=== PATIENT | female | born 1995 | race Caucasian/White ===

== ENCOUNTER 2022-08-14 07:46 | Emergency (ER) | payer OTHER, SELFPAY ==
--- NOTE | ~2022-08-14 | CT_ITS ---
EXAMINATION: CT ANGIOGRAM NECK WITH CONTRAST CT ANGIOGRAM BRAIN WITH CONTRAST CLINICAL INFORMATION: Severe headache. Right-sided numbness. Question carotid dissection. COMPARISON: None. TECHNIQUE: Test bolus sequences followed by intravenous administration 100 mL of Omnipaque 350. Helical imaging was performed in the axial plane from the thoracic inlet to the skull vertex. Delayed postcontrast imaging of the head was also performed. The data was processed at the radiologic technologist workstation for generation of MIP sequences. Angled MIPs and volume rendered reformatted images were also generated at an offline 3D workstation. Stenoses are assessed in accordance with NASCET criteria unless otherwise indicated. This CT examination was performed using dose optimization techniques as appropriate, variously including the following: *Automated exposure control *Adjustment of mA and/or kV according to patient size (this includes techniques or standardized protocols for targeted exams where dose is matched to indication/reason for exam; i.e. extremities or head) *Use of iterative reconstruction technique DLP: 2371 mGy-cm FINDINGS: Head CT: There is no intracranial hemorrhage, large acute infarction, or mass lesion. The ventricles are normal in size and configuration without evidence of hydrocephalus. On the postcontrast images, no abnormal enhancement is seen. The dural venous sinuses are normally opacified. The visualized paranasal sinuses and mastoid air cells are clear. Neck CTA: There is a normal aortic arch with no significant stenosis of the great vessel origins. The common and internal carotid arteries are normal in course and caliber. Both vertebral arteries are widely patent throughout their extracranial cervical course. Head CTA: No intracranial aneurysm is seen. The intracranial internal carotid arteries appear normal. The anterior cerebral artery, anterior communicating artery, and middle cerebral arteries appear normal. The intradural vertebral arteries and basilar artery appear normal. The posterior cerebral arteries appear normal. The posterior communicating arteries appear normal. Non-vascular findings: The cervical spine is intact without significant degenerative change. The cervical soft tissues appear normal. The upper lungs are clear. CT/CT angio head neck IMPRESSION: CT HEAD: No intracranial hemorrhage or large acute infarction. CTA NECK: Normal appearance of the major neck arteries. No dissection. CTA HEAD: Normal appearance of the major intracranial arteries. No occlusion.
--- NOTE | ~2022-08-14 | CT_ITS ---
EXAMINATION: CT HEAD WITHOUT CONTRAST CLINICAL INFORMATION: Headache, slurred speech. COMPARISON: None TECHNIQUE: Contiguous axial imaging was performed from the skull base to vertex without intravenous administration of contrast. Coronal and sagittal reformatted images were obtained. This CT examination was performed using dose optimization techniques as appropriate, variously including the following: *Automated exposure control *Adjustment of mA and/or kV according to patient size (this includes techniques or standardized protocols for targeted exams where dose is matched to indication/reason for exam; i.e. extremities or head) *Use of iterative reconstruction technique DLP: 730 mGy-cm FINDINGS: The cortical sulci are normal. The lateral ventricles are symmetrical. The third and fourth ventricles are in their normal midline position. The basilar and prepontine cisterns are unremarkable. There is no acute intra or extracerebral abnormality. There is no mass effect or midline shift. Sections through the bony calvarium are unremarkable. The paranasal sinuses are clear. The bony orbits and orbital contents are unremarkable. CT/CT head/brain wo IV con IMPRESSION: No acute intracranial pathology.
[2022-08-14 07:59] VITALS: BP 136/79; PULSE 120; RESP 24; TEMP 36.7; O2SAT 98; BMI 31.3
--- NOTE | 2022-08-14 07:59 | ED.GENADULT ---
HPI - General Adult General Stated complaint: Headache Time Seen by Provider: 08/14/22 07:57 Source: patient Mode of arrival: ambulatory Limitations: no limitations
--- NOTE | 2022-08-14 08:18 | ED_ITS ---
HPI - Headache General Chief Complaint: Headache Stated Complaint: Headache Time Seen by Provider: 08/14/22 07:57 Source: patient and family Mode of arrival: ambulatory Limitations: no limitations History of Present Illness HPI Narrative: pt presented with HAMILTON X 10 h frontal, denies fever/vomiting,she has hx of anxiety and migraine in the past MD elicited complaint: headache Onset (ago): hour(s) (10) Onset description: gradually Location: frontal Severity: moderate Quality & Timing: aching Exacerbating factors: none Relieving factors: nothing Related Data Allergies Allergy/AdvReac Type Severity Reaction Status Date / Time Penicillins Allergy Fever Verified 08/14/22 08:06 Review of Systems Review of Systems: Yes all other systems are reviewed and are negative ENT: Reports system reviewed and no additional complaints, except as documented Cardiovascular: Cardiovascular: Reports no additional cardiovascular complaints Genitourinary: Genitourinary: Reports no additional female genitourinary complaints Neurologic: Reports system reviewed and no additional complaints, except as documented PMFSH Past Medical History PMFSH Narrative: Anxiety/depression/migraine Social History Social History Smoked in Last 30 Days: No Use of substances other than those prescribed or required for medical reasons: No Advance Directives: No Advance Directives Information Provided: No Physical Exam Vital Signs: Vital Signs: Last Vital Signs Temp 98.7 F 08/14/22 13:51 Pulse 109 H 08/14/22 13:51 Resp 14 08/14/22 13:51 BP 107/61 08/14/22 13:51 Pulse Ox 97 08/14/22 13:51 O2 Del Method 08/14/22 13:51 BMI result Body Mass Index 31.3 Const: General: alert and other (very anxious appearing) Nutritional Appearance: average body habitus Orientation/consciousness: patient oriented x3 Limitations: no limitations HEENT: Head: Yes normal to inspection Ears: hearing grossly normal bilaterally General nose exam: Normal external nose present Face and sinus: Yes normal facial exam Mouth: Normal oral and palatal mucosa present Throat: Yes posterior oropharynx normal Neck: Neck: Yes normal visual inspection, Yes full ROM and Yes no meningeal signs Chest: Chest palpation & inspection: normal inspection of the chest Resp: Effort & Inspection: normal respiratory effort Auscultation: clear to auscultation bilaterally Cardio: Jugular venous distension: no JVD Rate: regular rate Rhythm: regular rhythm GI: Inspection: Yes normal to inspection Palpation (GI): Soft to palpation, not firm and nontender Skin: General skin exam: no rashes or lesions noted, elasticity normal and turgor normal Lesions: no lesions Rashes: no rashes Trauma: no lacerations or abrasions Neuro: General: patient oriented x3 and no meningeal signs Cranial nerves: Yes CN's II-XII intact bilaterally Gait exam (Neuro): Normal gait present Motor exam (neuro): 5/5 motor strength present throughout and Pronator motor function not present Course Reevaluation(s) Reevaluation #1: better sleeping in NAD HAMILTON down t o 12/05 ,head ct minus NAD ;will do CTA as well Time: 10:31 Reevaluation #2: We are waiting for CTA she is feeling better on exam supple neck afebrile Reevaluation #3: Headache free ,eating and drinking . Discussed L.P because leukocytosis pt and mother refused LP Medications Administered Discontinued Medications Generic Name Dose Route Start Last Admin Trade Name José Antonio PRN Reason Stop Dose Admin Diphenhydramine HCl 12.5 mg 08/14/22 08:16 08/14/22 08:42 Diphenhydramine Hcl 50 Mg/Ml Vial IVPUSH 08/14/22 08:17 12.5 mg ONCE ONE Administration Sodium Chloride 1,000 mls @ 999 mls/hr 08/14/22 08:15 08/14/22 09:38 Ns IVCONT 08/14/22 09:15 Infused .Q1H1M JEANNINE Infusion Iohexol 70 ml 08/14/22 12:36 08/14/22 12:37 Iohexol 350 Mg/Ml 100 Ml Infus..Btl IV 08/14/22 12:37 70 ml ONCE ONE Administration Ketorolac Tromethamine 30 mg 08/14/22 10:29 08/14/22 11:16 Ketorolac Tromethamine 30 Mg/Ml Vial IVPUSH 08/14/22 10:30 30 mg ONCE ONE Administration Lorazepam 0.5 mg 08/14/22 08:28 08/14/22 08:42 Lorazepam 2 Mg/Ml Vial IVPUSH 08/14/22 08:29 0.5 mg ONCE ONE Administration Metoclopramide HCl 10 mg 08/14/22 08:16 08/14/22 08:42 Metoclopramide Hcl 10 Mg/2 Ml Vial IVPUSH 08/14/22 08:17 10 mg ONCE ONE Administration Medical Decision Making Medical Decision Making [facility] [place] Narrative: pt presented with HAMILTON,she appear very anxious will get lab/ct/antianxiety and analgesia Differential Diagnosis Differential Diagnoses: The differential diagnosis associated with the presentation includes aneurism,subaracnoid bleed/brain tumor/meningitis Admission/Observation Consideration of admission/observation: Escalation of care including admission/observation considered Lab Data [facility] [place] Lab Attestation statement: I reviewed the patient's lab results. 08/14/22 08:35 08/14/22 08:57 Labs: Lab Results 08/14/22 08/14/22 Range/Units 08:35 08:57 WBC 15.8 H (4.8-10.8) X10*3/uL RBC 5.13 (4.20-5.50) X10*6/uL Hgb 14.7 (12.0-16.0) g/dl Hct 42.2 (37.0-47.0) % MCV 82.3 (80.0-98.0) fL MCH 28.7 (27.0-33.0) pg MCHC 34.8 (31.0-35.0) g/dl RDW 12.2 (11.0-16.0) % Plt Count 566 H (160-400) X10*3/uL MPV 9.2 L (9.4-12.3) fL Immature Gran % (Auto) 0.3 (0.0-0.4) % Neut % (Auto) 73.4 H (45-73) % Lymph % (Auto) 20.4 (20-40) % Gilchrist % (Auto) 5.4 (2-11) % Eos % (Auto) 0.1 (0-4) % Baso % (Auto) 0.4 (0-2) % Lymph # (Auto) 3.2 (1.2-4.9) X10*3/uL Gilchrist # (Auto) 0.9 (0.1-1.2) X10*3/uL Eos # (Auto) 0.0 (0.0-0.4) X10*3/uL Baso # (Auto) 0.1 (0.0-0.2) X10*3/uL Abs Immat Gran (auto) 0.04 H (0.00-0.03) X10*3/uL Absolute Neuts (auto) 11.6 H (2.0-8.3) x10*3/uL Absolute Nucleated RBC 0.000 (0.0-0.012) X10*3/uL Nucleated RBC % (auto) 0.0 (0.0-0.2) /100WBC Sodium 138 (135-145) mmol/L Potassium 3.4 (3.3-5.1) mmol/L Chloride 108 (96-108) mmol/L Carbon Dioxide 17 L (22-29) mmol/L Anion Gap 16 (12-20) BUN 13 (9-16) mg/dL Creatinine 0.77 (0.5-1.4) mg/dL Estim Creat Clear Calc 123.7 Estimated GFR > 60 Random Glucose 105 (60-115) mg/dL Calcium 10.0 (8.4-10.2) mg/dL Total Bilirubin 0.5 (0.0-1.0) mg/dL AST 16 (5-31) U/L ALT 10 (0-31) U/L Alkaline Phosphatase 49 (39-117) U/L Total Protein 7.4 (6.5-8.0) g/dL Albumin 4.0 (3.5-5.0) g/dL Beta HCG, Quant < 2 mIU/mL Independent Interpretation I performed an independent interpretation of an: CT Scan Independent Historian Clinical information obtained from an independent historian. History obtained from or confirmed by: Other (mother) Shared decision making ct and cta negative,feels better on reexam. I discussed with pt and mother L.P I explained to them that w/o LP I can not r/o meningitis even if unlikely because afebrile and neck supple. Pt and mother decline LP now ,pt state that she will return to the ED if recurrent HAMILTON/Fever/vomiting.They undenstend risk of misssing meningitis Discharge Plan Discharge Clinical Impression: Headache Patient Disposition: Home, Self-Care Instructions: Acute Headache (ED) Additional Instructions: follow up with your Primary Care Doctor,return if worse ,fever,vomiting any concern Referrals: Silas Allison MD [Physician] - 2 days Interventions: ED Discharge Assessment Last Done: 08/14/22 15:46 Discharge Date/Time: 08/14/22 15:47
[2022-08-14 08:39] LABS: MANUAL DIFF FLAG NO
[2022-08-14 08:41] LABS: Basophils Absolute Auto 0.1 X10*3/uL (0.0-0.2); Basophils Percent Auto 0.4 % (0-2); Eosinophils Percent Auto 0.1 % (0-4); Hematocrit 42.2 % (37.0-47.0); Hemoglobin 14.7 g/dl (12.0-16.0); Imm Gran Abs Auto 0.04 X10*3/uL (0.00-0.03); Imm Gran Pct Auto 0.3 % (0.0-0.4); Lymphocytes Absolute Auto 3.2 X10*3/uL (1.2-4.9); Lymphocytes Percent Auto 20.4 % (20-40); Mean Corpuscular HGB Conc 34.8 g/dl (31.0-35.0); Mean Corpuscular Hemoglobin 28.7 pg (27.0-33.0); Mean Corpuscular Volume 82.3 fL (80.0-98.0); Mean Platelet Volume 9.2 fL (9.4-12.3); Monocytes Absolute Auto 0.9 X10*3/uL (0.1-1.2); Monocytes Percent Auto 5.4 % (2-11); Neutrophils Absolute Auto 11.6 x10*3/uL (2.0-8.3); Neutrophils Percent Auto 73.4 % (45-73); Platelet Count 566 X10*3/uL (160-400); Red Blood Count 5.13 X10*6/uL (4.20-5.50); Red Cell Distribution Width 12.2 % (11.0-16.0); White Blood Count 15.8 X10*3/uL (4.8-10.8)
[2022-08-14] MEDS: LORazepam 2 MG/ML VIAL 0.5 MG IVPUSH (08:42)
[2022-08-14] MEDS: Metoclopramide HCl 10 MG/2 ML VIAL IVPUSH (08:42)
[2022-08-14] MEDS: diphenhydrAMINE HCL 50 MG/ML VIAL 12.5 MG IVPUSH (08:42)
[2022-08-14] MEDS: 0.9 % Sodium Chloride 1,000 ML 999 ML IVCONT (08:43)
[2022-08-14 09:24] LABS: Alanine Aminotransferase 10 U/L (0-31); Alkaline Phosphatase 49 U/L (39-117); Anion Gap 16 (12-20); Aspartate Amino Transferase 16 U/L (5-31); Bilirubin Total 0.5 mg/dL (0.0-1.0); Blood Urea Nitrogen 13 mg/dL (9-16); Carbon Dioxide 17 mmol/L (22-29); Chloride 108 mmol/L (96-108); Creatinine Clr Calc Pharmacy 123.7; Estimated Glomerular Filt Rate > 60; Glucose Random 105 mg/dL (60-115); Potassium 3.4 mmol/L (3.3-5.1); Sodium 138 mmol/L (135-145); Total Protein 7.4 g/dL (6.5-8.0)
[2022-08-14 09:25] LABS: HCG Quantitative < 2 mIU/mL
[2022-08-14 10:26] VITALS: BP 128/74; PULSE 96; RESP 14; O2SAT 100
[2022-08-14] MEDS: Ketorolac Tromethamine 30 MG/ML VIAL IVPUSH (11:16)
[2022-08-14] MEDS: iohexoL 350 MG/ML 100 ML INFUS..BTL 70 ML IV (12:37)
[2022-08-14 13:51] VITALS: BP 107/61; PULSE 109; RESP 14; TEMP 37.1; O2SAT 97
== END 2022-08-14 15:47 | disposition home or self-care (01) ==
PROVIDERS: Emergency Provider Emergency Medicine
DX: R51.9 Headache, unspecified (principal); F41.1 Generalized anxiety disorder; R47.81 Slurred speech; F43.0 Acute stress reaction; Z79.899 Other long term (current) drug therapy
CPT/HCPCS: 36415; 70450; 70496; 70498; 80053; 84702; 85025; 96361; 96374; 96375; 99284; J1200; J1885; J2060; J2765; Q9967

== ENCOUNTER 2023-10-09 16:49 | Emergency (ER) | payer OTHER, SELFPAY ==
--- NOTE | ~2023-10-09 | CT_ITS ---
Noncon Head EXAMINATION: CT head/brain wo IV con CLINICAL INFORMATION: Reason for Exam Headaches COMPARISON: CT head without contrast 08/14/2022 TECHNIQUE: Contiguous axial imaging was performed from the skull base to vertex without intravenous contrast. Sagittal and coronal reformatted images were obtained. This CT examination was performed using dose optimization techniques as appropriate, variously including the following: * Automated exposure control * Adjustment of mA and/or kV according to patient size (this includes techniques or standardized protocols for targeted exams where dose is matched to indication/reason for exam; i.e. extremities or head) Use of iterative reconstruction technique DLP: 624 mGy-cm FINDINGS: No acute osseous or soft tissue abnormality. The mastoid air cells and visualized portions of the paranasal sinuses are well aerated. There is no evidence of acute intracranial hemorrhage or territorial infarction. No abnormal mass effect or midline shift is seen. Oliveira to white matter differentiation is well preserved. No extra-axial fluid collections are identified. No hydrocephalus. No significant volume loss. There is no abnormal attenuation within the brain parenchyma. CT/CT head/brain wo IV con IMPRESSION: No acute intracranial abnormality including hemorrhage, mass effect, hydrocephalus, or acute territorial edematous infarction.
[2023-10-09 17:12] VITALS: BP 147/89; PULSE 80; RESP 16; TEMP 36.3; O2SAT 98; BMI 32.3
--- NOTE | 2023-10-09 17:16 | ED.GENADULT ---
HPI - General Adult General Chief complaint: Headache Stated complaint: referred by pcp for head pain x22 days Time Seen by Provider: 10/09/23 23:08 Source: patient and family Mode of arrival: ambulatory Limitations: no limitations History of Present Illness HPI narrative: Patient comes to the emergency room complaining of a headache that has been present for 22 days. Patient states that she has tried all of the hcyq-jit-gqstmci medications without any relief. Patient was also prescribed Related Data Previous Rx's ?Medication ?Instructions ?Recorded odubwecgjp-xaadbztqndhrv-[id number] 1 cap PO Q4-6H PRN pain #12 caps 10/10/23 50 mg-300 mg-40 mg capsule (Fioricet) ketorolac 10 mg tablet 10 mg PO TID PRN pain #12 tabs 10/10/23 metoclopramide HCl 5 mg tablet 5 mg PO .T.i.d. PRN nausea and 10/10/23 (Reglan) vomiting #12 tabs Allergies Allergy/AdvReac Type Severity Reaction Status Date / Time Penicillins Allergy Fever Verified 08/14/22 08:06 [facility] Social History Social History Smoked in Last 30 Days: No Advance Directives: No Advance Directives Information Provided: No Physical Exam ED Vital Signs: Vital Signs - 24 hr 10/09/23 17:12 10/09/23 19:57 10/09/23 23:14 Temperature 97.3 F 97.9 F 98.2 F Pulse Rate 80 75 74 Respiratory Rate 16 14 14 Blood Pressure 147/89 H 137/73 115/66 Pulse Oximetry 98 97 98 Oxygen Delivery Method Room Air Room Air Room Air BMI result Body Mass Index 32.3 Const Other: Appearance: Alert. Oriented X3. No acute distress. Uncomfortable Eyes: Pupils equal, round and reactive to light. Photophobia ENT: Pharynx normal. Neck: Normal inspection. Neck supple. No lymph nodes noted. No crepitus CVS: Normal heart rate and rhythm. Pulses normal. Normal S1 and S2 Respiratory: No respiratory distress. Breath sounds normal. No Wheezing. No rales Abdomen: Soft and nontender. No rigidity. No distention. Skin: Skin warm and dry. Normal skin color. Normal skin turgor. Extremities: No lower extremity edema. No Lacerations. No Rash Neuro: Oriented X 3. No motor deficit. No sensory deficit. Moving all extremities. No slurred speech. CN 2 through 12 grossly intact Psych: calm, cooperative, normal affect Course Course Course Narrative: Chronic headaches, sent in today by primary for imaging and further evaluation Patient was evaluated 1 year ago with negative CT but continues with severe headaches No obvious neuro deficits no vomiting Head CT is ordered This rapid medical exam done in triage pending full ER evaluation and dispo Medications Administered Discontinued Medications Generic Name Dose Route Start Last Admin Trade Name José Antonio PRN Reason Stop Dose Admin Acetaminophen 975 mg 10/09/23 17:17 10/09/23 17:20 Acetaminophen 325 Mg Tablet PO 10/09/23 17:18 975 mg ONCE ONE Administration Acetaminophen/Butalbital/Caffeine 1 tab 10/10/23 00:43 10/10/23 00:50 Butalb/Acetamin/Caff 50/325/40 Tablet PO 10/10/23 00:44 1 tab ONCE ONE Administration Diphenhydramine HCl 25 mg 10/10/23 00:06 10/10/23 00:46 Diphenhydramine Hcl 50 Mg/Ml Vial IVPUSH 10/10/23 00:07 25 mg ONCE ONE Administration Sodium Chloride 1,000 mls @ 999 mls/hr 10/10/23 00:06 10/10/23 02:32 Ns IVCONT 10/10/23 01:06 Infused .Q1H1M ONE Infusion Ketorolac Tromethamine 30 mg 10/10/23 00:06 10/10/23 00:45 Ketorolac Tromethamine 30 Mg/Ml Vial IVPUSH 10/10/23 00:07 30 mg ONCE ONE Administration Metoclopramide HCl 10 mg 10/10/23 00:06 10/10/23 00:46 Metoclopramide Hcl 10 Mg/2 Ml Vial IVPUSH 10/10/23 00:07 10 mg ONCE ONE Administration Discharge Plan Discharge Clinical Impression: Migraine Patient Disposition: Home, Self-Care Instructions: Migraine Headache (ED) Additional Instructions: If you have migraines, take ketorolac and Reglan together. Only use Fioricet if ketorolac does not work. Please follow-up with your primary care physician tomorrow. Also, please discuss with your provider that you have migraine headaches. It is recommended to avoid using control pills. There are other methods for control/vaginal bleeding such as IUDs. If you have any worsening or new symptoms, please return to the emergency room or call 911 Prescriptions: New ketorolac 10 mg tablet 10 mg PO TID PRN (Reason: pain) Qty: 12 0RF Rx Instructions: Take together with Reglan p.r.n. migraine headache metoclopramide HCl [Reglan] 5 mg tablet 5 mg PO .T.i.d. PRN (Reason: nausea and vomiting) Qty: 12 0RF Rx Instructions: Take together with ketorolac p.r.n. migraine headache utljdyyjud-pnryzpshdnyma-diwg [Fioricet] 50-300-40 mg capsule 1 cap PO Q4-6H PRN (Reason: pain) Qty: 12 0RF Rx Instructions: Take this medication if ketorolac does not work for migraine Referrals: Chang Polanco MD [Physician] - 10/14/23 Interventions: ED Discharge Assessment Last Done: 10/10/23 02:34 Discharge Date/Time: 10/10/23 02:35 Print Language: Latvian
[2023-10-09] MEDS: Acetaminophen 325 MG TABLET 975 MG PO (17:20)
[2023-10-09 19:57] VITALS: BP 137/73; PULSE 75; RESP 14; TEMP 36.6; O2SAT 97
[2023-10-09 23:14] VITALS: BP 115/66; PULSE 74; RESP 14; TEMP 36.8; O2SAT 98
[2023-10-10] MEDS: 0.9 % Sodium Chloride 1,000 ML 999 ML IVCONT (00:45)
[2023-10-10] MEDS: Ketorolac Tromethamine 30 MG/ML VIAL IVPUSH (00:45)
[2023-10-10] MEDS: Metoclopramide HCl 10 MG/2 ML VIAL IVPUSH (00:46)
[2023-10-10] MEDS: diphenhydrAMINE HCL 50 MG/ML VIAL 25 MG IVPUSH (00:46)
[2023-10-10] MEDS: Butalb/Acetamin/Caff 50/325/40 TABLET 1 TAB PO (00:50)
== END 2023-10-10 02:35 | disposition home or self-care (01) ==
PROVIDERS: Emergency Provider Emergency Medicine; PCP Family Medicine
DX: G43.909 Migraine, unspecified, not intractable, without status migrainosus (principal)
CPT/HCPCS: 70450; 96361; 96374; 96375; 99284; J1200; J1885; J2765